=== PATIENT | male | born 1985 | race African-American/Black ===

== ENCOUNTER 2019-02-26 01:08 | Emergency (ER) | payer MEDICAID, OTHER ==
[~2019-02-26] VITALS: Ht 180.3 cm; Wt 66.0 kg
[2019-02-26] MEDS ORDERED: CEFTRIAXONE SODIUM 250 MG/VIAL IM ONE (01:45)
[2019-02-26] MEDS ORDERED: AZITHROMYCIN 500 MG TABLET PO ONE (01:45)
[2019-02-26] MEDS ORDERED: LIDOCAINE HCL/PF 1% 10 MG/ML 5ML VIAL IJ ONE (01:45)
[2019-02-26 02:25] VITALS: BP 131/65
== END 2019-02-26 02:25 | disposition home or self-care (01) ==
LOC: ER 01:08
DX: Z20.2 Contact with and (suspected) exposure to infections with a predominantly sexual mode of transmission (principal); F12.10 Cannabis abuse, uncomplicated; F17.210 Nicotine dependence, cigarettes, uncomplicated; Z91.018 Allergy to other foods
CPT/HCPCS: 96372; 99283; J0696; J3490

== ENCOUNTER 2020-07-10 15:40 | Emergency (ER) | payer MEDICAID ==
[~2020-07-10] VITALS: Ht 175.3 cm; Wt 75.0 kg
[2020-07-10] MEDS ORDERED: CEFTRIAXONE SODIUM 250 MG/VIAL IM ONE (16:15)
[2020-07-10] MEDS ORDERED: AZITHROMYCIN 500 MG TABLET PO SCH (16:15)
[2020-07-10 16:31] LABS: CLARITY URINE CLEAR (CLEAR); COLOR URINE YELLOW (YELLOW); KETONES URINE NEGATIVE (NEGATIVE); LEUKOCYTE ESTERASE URINE 2+ (NEGATIVE); NITRITE URINE NEGATIVE (NEGATIVE); OCCULT BLOOD URINE NEGATIVE (NEGATIVE); PROTEIN URINE NEGATIVE (NEGATIVE); SPECIFIC GRAVITY URINE 1.021 (1.005-1.030)
[2020-07-10 16:42] VITALS: BP 155/96
== END 2020-07-10 18:08 | disposition home or self-care (01) ==
LOC: ER 15:40
DX: Z20.2 Contact with and (suspected) exposure to infections with a predominantly sexual mode of transmission (principal); F12.10 Cannabis abuse, uncomplicated; Z91.018 Allergy to other foods; Z98.890 Other specified postprocedural states
CPT/HCPCS: 81003; 96372; 99283; J0696